=== PATIENT | male | born 1935 | race Caucasian/White ===

== ENCOUNTER 2020-11-25 20:47 | Emergency (ER) | payer MEDICARE, BC, OTHER ==
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
== END 2020-11-25 22:20 | disposition home or self-care (01) ==
LOC: FB.ED 20:47
DX: S76.011A Strain of muscle, fascia and tendon of right hip, initial encounter (principal); Z79.899 Other long term (current) drug therapy; Z79.84 Long term (current) use of oral hypoglycemic drugs; V49.40XA Driver injured in collision with unspecified motor vehicles in traffic accident, initial encounter; Y92.410 Unspecified street and highway as the place of occurrence of the external cause
CPT/HCPCS: 36415; 80053; 85025; 85610; 85730; 99284